=== PATIENT | female | born 1955 | race Hispanic/Latino ===

== ENCOUNTER 2023-01-10 03:46 | Inpatient (IN) | payer MEDICARE ==
[2023-01-10] MEDS ORDERED: Morphine 4 MG/ML VIAL ONE (04:03)
[2023-01-10] MEDS ORDERED: Lorazepam 2 MG/ML VIAL ONE (04:03)
[2023-01-10 05:14] LABS: #Monocytes 0.3 10x3/uL (0.0-1.1); #Neutrophils 8.3 10x3/uL (1.5-8.4); %Basophils 0.2 % (0.0-2.0); %Eosinophils 0.3 % (0.0-6.0); %Lymphocytes 6.2 % (18.0-47.0); %Neutrophils 90.2 % (40.0-75.0); Hemoglobin 14.6 g/dL (12.0-15.5); Mean Corpuscular HGB CONC 31.9 g/dL (32.0-36.0); Mean Corpuscular Hemoglobin 28.2 pg (27.0-33.0); Mean Corpuscular Volume 88.6 fl (81.6-98.3); Mean Platelet Volume 11.8 fl (7.4-10.4); Platelet Count 145 10x3/uL (150-450); RBC Distribution Width 13.3 % (11.5-14.5); Red Blood Cell (RBC) Count 5.17 10x6/uL (3.90-5.03); White Blood Cell (WBC) Count 9.3 10x3/uL (3.5-10.5)
[2023-01-10 05:32] LABS: ALT (SGPT) 24 U/L (8-55); AST (SGOT) 27 U/L (5-34); Albumin 4.2 g/dL (3.4-4.8); Alkaline Phosphatase 65 U/L (40-110); Anion Gap 18 mmol/L (10-20); BUN (Urea Nitrogen) 15 mg/dL (9.8-20.1); Calc. Creatinine Clearance 0 mL/min (70-130); Calcium 8.8 mg/dL (7.8-10.44); Carbon Dioxide 18 mmol/L (23-31); Chloride 108 mmol/L (98-107); Estimated GFR 72; Globulin 2.7 g/dL (2.4-3.5); Glucose 85 mg/dL (80-115); Lipase 17 U/L (8-78); Potassium 4.3 mmol/L (3.5-5.1); Protein, Total 6.9 g/dL (5.8-8.1); Sodium 140 mmol/L (136-145)
[2023-01-10] MEDS ORDERED: Piperacillin/Tazobactam 3.375 GM VIAL ONE ×2 (05:36→08:25)
[2023-01-10 06:32] LABS: Bilirubin Neg (Negative); Blood, Urine 25 (Negative); Clarity Clear (Clear); Glucose, Urine (Dipstick) Normal (Negative); Ketone, Urine Negative (Negative); Leukocyte 500 (Negative); Nitrite Negative (Negative); Protein, Urine (Dipstick) Negative (Neg-Trace); Specific Gravity, Urine 1.005 (1.005-1.030); Urobilinogen Normal mg/dL (Less than 2)
[2023-01-10 06:36] LABS: Bacteria/HPF Rare-Few HPF (None Seen); RBC/HPF 0-3 HPF (0-3); Squamous Epithelial 0-3 HPF (0-3)
[2023-01-10 06:39] LABS: SARS-CoV-2 NAA Rapid Test Not Detected (NotDetected)
[2023-01-10] MEDS ORDERED: Piperacillin/Tazobactam 3.375 GM in Sodium Chloride 0.9% 100 ML IVPB SCH (07:15)
[2023-01-10] MEDS ORDERED: Iopamidol 300 61% 100 ML VIAL FS ONE (09:34)
[2023-01-10] MEDS: Lactated Ringer's 1,000 ML IV SCH ×3 (09:40→21:53)
[2023-01-10 09:42] VITALS: BMI 24.8
[2023-01-10] MEDS: metroNIDAZOLE 500 MG in Premix Bag 1 BAG IVPB SCH ×2 (09:51→17:32)
[2023-01-10] MEDS: Piperacillin/Tazobactam 3.375 GM in Sodium Chloride 0.9% 100 ML IVPB SCH ×2 (11:45→18:30)
[2023-01-10] MEDS: Morphine 2 MG/ML VIAL SLOW IVP PRN ×2 (14:54→20:56)
[2023-01-10] MEDS ORDERED: Benzonatate 100 MG CAP PO PRN (18:54)
[2023-01-11] MEDS: Piperacillin/Tazobactam 3.375 GM in Sodium Chloride 0.9% 100 ML IVPB SCH ×3 (01:18→18:20)
[2023-01-11 03:37] LABS: #Eosinphils 0.1 10x3/uL (0.0-0.5); #Monocytes 0.4 10x3/uL (0.0-1.1); #Neutrophils 7.3 10x3/uL (1.5-8.4); %Basophils 0.2 % (0.0-2.0); %Eosinophils 0.6 % (0.0-6.0); %Lymphocytes 11.5 % (18.0-47.0); %Monocytes 4.8 % (0.0-10.0); %Neutrophils 82.6 % (40.0-75.0); Hemoglobin 11.9 g/dL (12.0-15.5); Mean Corpuscular HGB CONC 32.4 g/dL (32.0-36.0); Mean Corpuscular Hemoglobin 28.7 pg (27.0-33.0); Mean Corpuscular Volume 88.6 fl (81.6-98.3); Mean Platelet Volume 11.2 fl (7.4-10.4); Platelet Count 140 10x3/uL (150-450); RBC Distribution Width 13.7 % (11.5-14.5); Red Blood Cell (RBC) Count 4.14 10x6/uL (3.90-5.03); White Blood Cell (WBC) Count 8.9 10x3/uL (3.5-10.5)
[2023-01-11 03:49] LABS: Anion Gap 10 mmol/L (10-20); BUN (Urea Nitrogen) 8 mg/dL (9.8-20.1); Calc. Creatinine Clearance 68 mL/min (70-130); Calcium 7.9 mg/dL (7.8-10.44); Carbon Dioxide 22 mmol/L (23-31); Chloride 109 mmol/L (98-107); Estimated GFR 84; Glucose 90 mg/dL (80-115); Potassium 3.4 mmol/L (3.5-5.1); Sodium 138 mmol/L (136-145)
[2023-01-11] MEDS: Lactated Ringer's 1,000 ML IV SCH ×2 (05:44→16:26)
[2023-01-11] MEDS: metroNIDAZOLE 500 MG in Premix Bag 1 BAG IVPB SCH ×2 (08:44)
[2023-01-11] MEDS ORDERED: Potassium Chloride 20 MEQ TAB PO SCH (09:00)
[2023-01-11] MEDS: Morphine 2 MG/ML VIAL SLOW IVP PRN ×3 (10:37→21:32)
[2023-01-11] MEDS ORDERED: Dextrose 50% Abboject 50 ML SYRINGE SLOW IVP PRN (11:46)
[2023-01-11] MEDS ORDERED: Dextrose 5% in Water 1,000 ML IV PRN (11:46)
[2023-01-11 17:44] LABS: Anion Gap 13 mmol/L (10-20); BUN (Urea Nitrogen) 7 mg/dL (9.8-20.1); Calc. Creatinine Clearance 61 mL/min (70-130); Calcium 8.1 mg/dL (7.8-10.44); Carbon Dioxide 18 mmol/L (23-31); Chloride 107 mmol/L (98-107); Estimated GFR 74; Glucose 161 mg/dL (80-115); Potassium 3.9 mmol/L (3.5-5.1); Sodium 134 mmol/L (136-145)
[2023-01-11] MEDS: Rosuvastatin 20 MG TAB PO SCH (20:41)
[2023-01-11] MEDS: Azelastine 137 MCG/Spray 30 ML NS SCH (20:41)
[2023-01-11] MEDS: Atenolol 25 MG TAB PO SCH (21:17)
[2023-01-11] MEDS: Acetaminophen 325 MG TAB PO PRN (22:14)
[2023-01-11] MEDS ORDERED: diphenhydrAMINE 25 MG CAP PO SCH (22:15)
[2023-01-11] MEDS ORDERED: Ketorolac Tromethamine 30 MG/ML VIAL IVP SCH (22:15)
[2023-01-11] MEDS ORDERED: Lactated Ringer's 1,000 ML IV SCH (22:15)
[2023-01-11] MEDS: Dextrose 5%-Lactated Ringers 1,000 ML IV SCH (22:15)
[2023-01-12] MEDS: Piperacillin/Tazobactam 3.375 GM in Sodium Chloride 0.9% 100 ML IVPB SCH ×3 (03:00→17:56)
[2023-01-12 04:00] LABS: Anion Gap 9 mmol/L (10-20); BUN (Urea Nitrogen) 10 mg/dL (9.8-20.1); Calc. Creatinine Clearance 67 mL/min (70-130); Calcium 7.9 mg/dL (7.8-10.44); Carbon Dioxide 26 mmol/L (23-31); Chloride 107 mmol/L (98-107); Estimated GFR 83; Glucose 130 mg/dL (80-115); Potassium 3.2 mmol/L (3.5-5.1); Sodium 139 mmol/L (136-145)
[2023-01-12] MEDS ORDERED: Potassium Chloride 20 MEQ TAB PO SCH ×2 (04:45→10:00)
[2023-01-12] MEDS: Dextrose 5%-Lactated Ringers 1,000 ML IV SCH ×3 (05:39→23:47)
[2023-01-12] MEDS: Lisinopril 20 MG TAB PO SCH (09:22)
[2023-01-12] MEDS: Azelastine 137 MCG/Spray 30 ML NS SCH ×2 (09:23→20:59)
[2023-01-12] MEDS: Rosuvastatin 20 MG TAB PO SCH (20:59)
[2023-01-12] MEDS ORDERED: Atenolol 25 MG TAB PO SCH (21:00)
[2023-01-12] MEDS: Atenolol 25 MG TAB PO SCH (21:00)
[2023-01-13] MEDS: Piperacillin/Tazobactam 3.375 GM in Sodium Chloride 0.9% 100 ML IVPB SCH (02:12)
[2023-01-13] MEDS: Ipratropium/Albuterol 3 ML NEB NEB PRN ×2 (02:50→16:02)
[2023-01-13] MEDS: Acetaminophen 325 MG TAB PO PRN (03:39)
[2023-01-13 03:47] LABS: #Eosinphils 0.3 10x3/uL (0.0-0.5); #Monocytes 0.4 10x3/uL (0.0-1.1); %Basophils 0.3 % (0.0-2.0); %Eosinophils 4.6 % (0.0-6.0); %Lymphocytes 22.8 % (18.0-47.0); %Monocytes 6.4 % (0.0-10.0); %Neutrophils 65.7 % (40.0-75.0); Hemoglobin 13.1 g/dL (12.0-15.5); Mean Corpuscular HGB CONC 32.8 g/dL (32.0-36.0); Mean Corpuscular Volume 85.3 fl (81.6-98.3); Mean Platelet Volume 10.9 fl (7.4-10.4); Platelet Count 182 10x3/uL (150-450); RBC Distribution Width 13.4 % (11.5-14.5); Red Blood Cell (RBC) Count 4.68 10x6/uL (3.90-5.03); White Blood Cell (WBC) Count 6.1 10x3/uL (3.5-10.5)
[2023-01-13 04:02] LABS: Anion Gap 12 mmol/L (10-20); BUN (Urea Nitrogen) 6 mg/dL (9.8-20.1); Calc. Creatinine Clearance 73 mL/min (70-130); Calcium 8.7 mg/dL (7.8-10.44); Carbon Dioxide 26 mmol/L (23-31); Chloride 108 mmol/L (98-107); Estimated GFR 91; Glucose 96 mg/dL (80-115); Potassium 3.7 mmol/L (3.5-5.1); Sodium 142 mmol/L (136-145)
[2023-01-13] MEDS ORDERED: Ondansetron PF 4 MG/2 ML Vial IVP PRN (08:48)
[2023-01-13] MEDS: Azelastine 137 MCG/Spray 30 ML NS SCH (09:41)
[2023-01-13] MEDS: Lisinopril 20 MG TAB PO SCH (09:41)
[2023-01-13] MEDS ORDERED: Furosemide 20 MG/2 ML VIAL SLOW IVP SCH (09:45)
[2023-01-13] MEDS ORDERED: Piperacillin/Tazobactam 3.375 GM in Sodium Chloride 0.9% 100 ML IVPB SCH (10:00)
[2023-01-13] MEDS: Dextrose 5%-Lactated Ringers 1,000 ML IV SCH (12:05)
[2023-01-13] MEDS: Atenolol 25 MG TAB PO SCH (22:06)
[2023-01-13] MEDS: Rosuvastatin 20 MG TAB PO SCH (22:06)
[2023-01-13] MEDS: Amoxicillin/Potassium Clav 875 MG TAB PO SCH (22:06)
[2023-01-14] MEDS: Azelastine 137 MCG/Spray 30 ML NS SCH ×2 (04:38→09:06)
[2023-01-14 05:51] LABS: #Eosinphils 0.2 10x3/uL (0.0-0.5); #Monocytes 0.4 10x3/uL (0.0-1.1); #Neutrophils 4.1 10x3/uL (1.5-8.4); %Basophils 0.3 % (0.0-2.0); %Lymphocytes 18.5 % (18.0-47.0); Hemoglobin 14.1 g/dL (12.0-15.5); Mean Corpuscular HGB CONC 33.7 g/dL (32.0-36.0); Mean Corpuscular Hemoglobin 28.6 pg (27.0-33.0); Mean Platelet Volume 10.9 fl (7.4-10.4); Platelet Count 199 10x3/uL (150-450); RBC Distribution Width 13.4 % (11.5-14.5); Red Blood Cell (RBC) Count 4.93 10x6/uL (3.90-5.03); White Blood Cell (WBC) Count 5.8 10x3/uL (3.5-10.5)
[2023-01-14 06:01] LABS: Anion Gap 17 mmol/L (10-20); BUN (Urea Nitrogen) 15 mg/dL (9.8-20.1); Calc. Creatinine Clearance 71 mL/min (70-130); Calcium 9.1 mg/dL (7.8-10.44); Carbon Dioxide 22 mmol/L (23-31); Chloride 106 mmol/L (98-107); Estimated GFR 88; Glucose 93 mg/dL (80-115); Potassium 3.9 mmol/L (3.5-5.1); Sodium 141 mmol/L (136-145)
[2023-01-14] MEDS ORDERED: PATIENT'S HOME MEDICATION INH SCH (09:00)
[2023-01-14] MEDS: Lisinopril 20 MG TAB PO SCH (09:07)
[2023-01-14] MEDS: Amoxicillin/Potassium Clav 875 MG TAB PO SCH (09:07)
[2023-01-14] MEDS: Ipratropium/Albuterol 3 ML NEB NEB PRN (10:20)
[2023-01-14 15:56] VITALS: BP 164/65; TEMP 99.3
== END 2023-01-14 18:02 | disposition home or self-care (01) | DRG 392 ==
LOC: CSHERS 03:46 → CSHIMCU 07:04 → CSHTELE 01-12 05:15
PROVIDERS: ADMIT Family Medicine; ATTEND Family Medicine
DX: A09 Infectious gastroenteritis and colitis, unspecified (principal); J44.9 Chronic obstructive pulmonary disease, unspecified; E78.5 Hyperlipidemia, unspecified; E78.00 Pure hypercholesterolemia, unspecified; I10 Essential (primary) hypertension; F41.9 Anxiety disorder, unspecified; E87.6 Hypokalemia; E87.70 Fluid overload, unspecified; Z20.822 Contact with and (suspected) exposure to COVID-19; Z98.51 Tubal ligation status; Z87.891 Personal history of nicotine dependence; Z88.8 Allergy status to other drugs, medicaments and biological substances
CPT/HCPCS: 36415; 36416; 74177; 76705; 80048; 80053; 81003; 81015; 83690; 85025; 87324; 87449; 93005; 93010; 94640; 94760; 94799; 96361; 96365; 96366; 96375; J1611; J1650; J1885; J1940; J2060; J2270; J2272; J2405; J2543; J3490; J7120; J7620; Q9967; U0002

== ENCOUNTER 2023-09-14 14:17 | Emergency (ER) | payer MEDICARE ==
[2023-09-14 15:22] LABS: #Eosinphils 0.2 10x3/uL (0.0-0.5); #Monocytes 0.4 10x3/uL (0.0-1.1); #Neutrophils 3.9 10x3/uL (1.5-8.4); %Basophils 0.3 % (0.0-2.0); %Eosinophils 3.9 % (0.0-6.0); %Lymphocytes 24.3 % (18.0-47.0); %Monocytes 6.2 % (0.0-10.0); %Neutrophils 65.3 % (40.0-75.0); Hematocrit 40.4 % (34.9-44.5); Hemoglobin 13.4 g/dL (12.0-15.5); Mean Corpuscular HGB CONC 33.2 g/dL (32.0-36.0); Mean Corpuscular Hemoglobin 28.9 pg (27.0-33.0); Mean Corpuscular Volume 87.1 fl (81.6-98.3); Mean Platelet Volume 11.2 fl (7.4-10.4); Platelet Count 183 10x3/uL (150-450); RBC Distribution Width 13.2 % (11.5-14.5); Red Blood Cell (RBC) Count 4.64 10x6/uL (3.90-5.03)
[2023-09-14 15:36] LABS: ALT (SGPT) 19 U/L (8-55); AST (SGOT) 21 U/L (5-34); Albumin 4.3 g/dL (3.4-4.8); Alkaline Phosphatase 61 U/L (40-110); Anion Gap 13 mmol/L (10-20); BUN (Urea Nitrogen) 20 mg/dL (9.8-20.1); Bilirubin, Total 0.6 mg/dL (0.2-1.2); Calc. Creatinine Clearance 0 mL/min (70-130); Calcium 9.2 mg/dL (7.8-10.44); Carbon Dioxide 25 mmol/L (23-31); Chloride 107 mmol/L (98-107); Estimated GFR 84; Globulin 2.7 g/dL (2.4-3.5); Glucose 111 mg/dL (80-115); Magnesium 2.2 mg/dL (1.6-2.6); Sodium 141 mmol/L (136-145)
[2023-09-14 15:42] LABS: Troponin I Less than 0.010 ng/mL (< 0.028)
== END 2023-09-14 16:24 | disposition home or self-care (01) ==
LOC: CSHERS 14:17
DX: S09.90XA Unspecified injury of head, initial encounter (principal); J44.9 Chronic obstructive pulmonary disease, unspecified; E78.00 Pure hypercholesterolemia, unspecified; N18.2 Chronic kidney disease, stage 2 (mild); Z87.891 Personal history of nicotine dependence; W21.05XA Struck by basketball, initial encounter
CPT/HCPCS: 36415; 70450; 71045; 72125; 80053; 83735; 84484; 85025; 93005